=== PATIENT | male | born 1960 | race Caucasian/White ===

== ENCOUNTER 2018-10-10 10:03 | Emergency (ER) | payer MEDICARE ==
[~2018-10-10] VITALS: Ht 167.6 cm; Wt 70.0 kg
[~2018-10-10 10:03] MED LIST: AMOXICILLIN/CL875 MG PO; CARISOPRODOL350 M1 PO; CELEBREX200 MG OR; CIPRO500 MG PO; COLACE100 MG PO; DULCOLAX5 MG PO; FLEXERIL OR; FLONASE NASAL50 MCG; LORTAB 5 OR; MORPHINE SUL15 M2; MORPHINE SUL30 M3 PO; MORPHINE SUL30 M5 PO; MORPHINE SULFAT60 MG PO; NAPROSYN500 MG OR; OMEPRAZOLE20 MG PO; OXYCO/APAP1 TA1 OR; PERCOCET 5/325M1 TAB OR; PERCOCET1 TA2 OR; PRILOSEC20 MG PO; TOPAMAX25 MG; TOPIRAMATE50 MG PO; ULTRAM50 MG OR; VOLTAREN 1% TOP; VOLTAREN 1% UR; VOLTAREN1 % EX
[2018-10-10 10:09] VITALS: BP 149/85
[2018-10-10 10:29] LABS: HEMOGLOBIN 15.7 g/dl (14.0-18.0); IMMATURE GRANULOCYTES 0.4 % (0.0-5.0); MEAN CELL VOLUME 90.1 fL CALC (80.0-100.0); MEAN CORPUSCULAR HGB 29.5 pG CALC (26.0-32.0); MEAN CORPUSCULAR HGB CONC 32.7 g/L CALC (32.0-36.0); NEUT# 6.3 thou/uL (1.82-7.42); RED BLOOD COUNT 5.33 mill/uL (4.70-6.10)
[2018-10-10 10:40] LABS: ANION GAP 16 (6-22 (CALC)); BUN 14 mg/dL (9-20); BUN/CREATININE RATIO 15 (12-20 (CALC)); CARBON DIOXIDE 22 mmol/l (22-30); CHLORIDE 109 mmol/l (95-108); CREATININE 0.9 mg/dL (0.7-1.3); GFR > 60 ML/MIN (>=60 (CALC)); GFR FOR AFR.AMER. > 60 ML/MIN (>=60 (CALC)); POTASSIUM 4.1 mmol/l (3.5-5.1); SODIUM 142 mmol/l (137-146)
== END 2018-10-10 11:33 | disposition left against medical advice (07) ==
LOC: ED 10:03 → ED-I 11:07 → ED 11:33
PROVIDERS: Family Medicine
DX: R07.9 Chest pain, unspecified (principal); Z91.19 Patient's noncompliance with other medical treatment and regimen

== ENCOUNTER 2018-10-17 11:22 | Emergency (ER) | payer MEDICARE ==
[~2018-10-17] VITALS: Ht 167.6 cm; Wt 75.0 kg
[2018-10-17] MEDS ORDERED: XANAX0.25 MG PO (13:06)
[2018-10-17 13:44] VITALS: BP 139/77
== END 2018-10-17 13:44 | disposition home or self-care (01) ==
LOC: ED 11:22
DX: M79.602 Pain in left arm (principal); F41.1 Generalized anxiety disorder

== ENCOUNTER 2018-10-31 13:19 | Emergency (ER) | payer MEDICARE ==
[~2018-10-31] VITALS: Ht 167.6 cm; Wt 77.3 kg
[~2018-10-31 13:19] MED LIST changes: +XANAX0.25 MG PO
[2018-10-31] MEDS ORDERED: TOPAMAX50 MG PO (13:38)
[2018-10-31] MEDS ORDERED: GABAPENTIN300 M2 PO (13:38)
[2018-10-31] MEDS ORDERED: ESOMEPRAZOLE MA40 MG PO (13:38)
[2018-10-31] MEDS ORDERED: MORPHINE SUL15 M2 PO (13:39)
[2018-10-31 14:03] VITALS: BP 115/87
== END 2018-10-31 14:03 | disposition home or self-care (01) ==
LOC: ED 13:19
DX: S46.912A Strain of unspecified muscle, fascia and tendon at shoulder and upper arm level, left arm, initial encounter (principal); V58.4XXA Person boarding or alighting a pick-up truck or van injured in noncollision transport accident, initial encounter; Z87.820 Personal history of traumatic brain injury

== ENCOUNTER 2019-01-24 13:47 | Emergency (ER) | payer MEDICARE ==
[~2019-01-24] VITALS: Ht 167.6 cm; Wt 65.0 kg
[~2019-01-24 13:47] MED LIST changes: +ESOMEPRAZOLE MA40 MG PO; +GABAPENTIN300 M2 PO; +MORPHINE SUL15 M2 PO; +TOPAMAX50 MG PO
[2019-01-24] MEDS ORDERED: BACTROBAN TOP (14:49)
[2019-01-24] MEDS ORDERED: KEFLEX500 M1 PO (14:49)
[2019-01-24] MEDS ORDERED: BACTRIM DS1 TAB PO (14:49)
[2019-01-24 15:04] VITALS: BP 134/88
== END 2019-01-24 15:15 | disposition home or self-care (01) ==
LOC: ED 13:47
DX: L01.00 Impetigo, unspecified (principal); L03.116 Cellulitis of left lower limb; L03.114 Cellulitis of left upper limb; L03.113 Cellulitis of right upper limb

== ENCOUNTER 2019-04-23 14:50 | Emergency (ER) | payer MEDICARE ==
[~2019-04-23] VITALS: Ht 167.6 cm; Wt 70.0 kg
[~2019-04-23 14:50] MED LIST changes: +BACTRIM DS1 TAB PO; +BACTROBAN TOP; +KEFLEX500 M1 PO
[2019-04-23 15:40] LABS: IMMATURE GRANULOCYTES 0.3 % (0.0-5.0); MEAN CELL VOLUME 88.8 fL CALC (80.0-100.0); MEAN CORPUSCULAR HGB 29.3 pG CALC (26.0-32.0); NEUT# 10.7 thou/uL (1.82-7.42); RED BLOOD COUNT 4.54 mill/uL (4.70-6.10); RED CELL DISTRI WIDTH 13.6 % (11.5-15.5)
[2019-04-23 15:41] LABS: URINE BILIRUBIN - DIPSTICK NEGATIVE (NEGATIVE); URINE BLOOD DIPSTICK NEGATIVE (NEGATIVE); URINE COLOR YELLOW; URINE GLUCOSE - DIPSTICK NEGATIVE (NEGATIVE); URINE KETONE NEGATIVE (NEGATIVE); URINE LEUK ESTERASE NEGATIVE (NEGATIVE); URINE NITRITE - DIPSTICK NEGATIVE (Negative); URINE PROTEIN - DIPSTICK NEGATIVE (NEG-TRACE); URINE UROBILINOGEN - DIPSTICK 0.2 E.U./dL (0.2)
[2019-04-23 15:43] LABS: HEMATOCRIT 40.3 % (39.0-50.0); HEMOGLOBIN 13.3 g/dl (14.0-18.0)
[2019-04-23] MEDS ORDERED: MORPHINE SUL30 M3 PO (15:51)
[2019-04-23 16:01] LABS: ALBUMIN 4.3 g/dL (3.2-5.0); ALKALINE PHOSPHATASE 94 u/l (38-126); ANION GAP 13 (6-22 (CALC)); BUN 9 mg/dL (9-20); BUN/CREATININE RATIO 11 (12-20 (CALC)); CARBON DIOXIDE 23 mmol/l (22-30); CHLORIDE 107 mmol/l (95-108); CREATININE 0.9 mg/dL (0.7-1.3); GFR > 60 ML/MIN (>=60 (CALC)); GFR FOR AFR.AMER. > 60 ML/MIN (>=60 (CALC)); POTASSIUM 3.9 mmol/l (3.5-5.1); SODIUM 139 mmol/l (137-146); TOTAL PROTEIN 7.3 g/dL (6.3-8.2)
[2019-04-23 16:05] LABS: BILIRUBIN, TOTAL 0.6 mg/dL (0.0-1.4); SGOT/AST 41 u/l (17-59)
[2019-04-23 19:00] VITALS: BP 101/56
--- NOTE | 2019-04-25 08:53 | NUR ---
PRELIMINARY CULTURES CALLED TO GILDA ON FLOOR 7 W AT [facility]. 2 BOTTLES GROWING GRAM(+) COCCI. FAXED RESULTS TO [id number]. FINAL RESULTS TO FOLLOW.
== END 2019-04-23 19:00 | disposition short-term general hospital (02) ==
LOC: ED 14:50
PROVIDERS: Family Medicine
PROC: 00JU3ZZ Inspection of Spinal Canal, Percutaneous Approach (ICD-10-PCS; principal; 2019-04-23)
DX: A41.9 Sepsis, unspecified organism (principal); R41.82 Altered mental status, unspecified; Z87.820 Personal history of traumatic brain injury
CPT/HCPCS: J0133; J0692

== ENCOUNTER 2019-09-06 | Emergency (ER) | payer MEDICARE ==
[2019-09-06 14:02] LABS: HEMATOCRIT 40.3 % (39.0-50.0); IMMATURE GRANULOCYTES 0.3 % (0.0-5.0); MEAN CORPUSCULAR HGB 29.3 pG CALC (26.0-32.0); MEAN CORPUSCULAR HGB CONC 32.3 g/L CALC (32.0-36.0); NEUT# 10.24 thou/uL (1.82-7.42); RED BLOOD COUNT 4.43 mill/uL (4.70-6.10); RED CELL DISTRI WIDTH 13.4 % (11.5-15.5)
[2019-09-06 14:29] LABS: ALBUMIN 3.8 g/dL (3.2-5.0); ALKALINE PHOSPHATASE 88 u/l (38-126); ANION GAP 11 (6-22 (CALC)); BILIRUBIN, TOTAL 0.4 mg/dL (0.0-1.4); BUN 8 mg/dL (8-23); BUN/CREATININE RATIO 9 (12-20 (CALC)); CARBON DIOXIDE 22 mmol/l (22-30); CHLORIDE 110 mmol/l (95-108); CREATININE 0.9 mg/dL (0.7-1.3); GFR > 60 ML/MIN (>=60 (CALC)); GFR FOR AFR.AMER. > 60 ML/MIN (>=60 (CALC)); LIPASE 37 u/l (23-300); SGOT/AST 20 u/l (19-48); SODIUM 139 mmol/l (137-146); TOTAL PROTEIN 6.8 g/dL (6.3-8.2)
[2019-09-06 15:06] LABS: URINE BILIRUBIN - DIPSTICK NEGATIVE (NEGATIVE); URINE BLOOD DIPSTICK NEGATIVE (NEGATIVE); URINE COLOR YELLOW; URINE GLUCOSE - DIPSTICK NEGATIVE (NEGATIVE); URINE KETONE NEGATIVE (NEGATIVE); URINE LEUK ESTERASE NEGATIVE (NEGATIVE); URINE NITRITE - DIPSTICK NEGATIVE (Negative); URINE PH 6.5 (4.5-8.0); URINE PROTEIN - DIPSTICK NEGATIVE (NEG-TRACE); URINE SPECIFIC GRAVITY <=1.005; URINE UROBILINOGEN - DIPSTICK 0.2 E.U./dL (0.2)
== END 2019-09-06 16:26 | disposition left against medical advice (07) ==
PROVIDERS: Family Medicine
DX: R07.9 Chest pain, unspecified (principal); Z91.19 Patient's noncompliance with other medical treatment and regimen

== ENCOUNTER 2019-10-02 | Emergency (ER) | payer MEDICARE ==
[2019-10-02 18:09] LABS: HEMATOCRIT 42.3 % (39.0-50.0); HEMOGLOBIN 14.2 g/dl (14.0-18.0); IMMATURE GRANULOCYTES 0.3 % (0.0-5.0); MEAN CELL VOLUME 87.8 fL CALC (80.0-100.0); MEAN CORPUSCULAR HGB 29.5 pG CALC (26.0-32.0); MEAN CORPUSCULAR HGB CONC 33.6 g/dL CAL (32.0-36.0); NEUT# 17.07 thou/uL (1.82-7.42); RED BLOOD COUNT 4.82 mill/uL (4.70-6.10); RED CELL DISTRI WIDTH 13.4 % (11.5-15.5)
[2019-10-02 18:24] LABS: ALBUMIN 3.9 g/dL (3.2-5.0); ALKALINE PHOSPHATASE 103 u/l (38-126); ANION GAP 11 (6-22 (CALC)); BUN 14 mg/dL (8-23); BUN/CREATININE RATIO 16 (12-20 (CALC)); C-REACTIVE PROTEIN 8.1 mg/dL (0-0.9); CARBON DIOXIDE 20 mmol/l (22-30); CHLORIDE 109 mmol/l (95-108); CREATININE 0.9 mg/dL (0.7-1.3); GFR > 60 ML/MIN (>=60 (CALC)); GFR FOR AFR.AMER. > 60 ML/MIN (>=60 (CALC)); POTASSIUM 3.9 mmol/l (3.5-5.1); SGOT/AST 18 u/l (19-48); SODIUM 136 mmol/l (137-146)
[2019-10-02 18:30] LABS: BILIRUBIN, TOTAL 0.7 mg/dL (0.0-1.4)
[2019-10-02] MEDS ORDERED: VENTOLIN HFA IN (19:45)
[2019-10-02] MEDS ORDERED: DOXYCYCL HYC100 MG PO (19:45)
--- NOTE | 2019-10-05 07:33 | NUR ---
Notified patient of Negative Covid results. Advised patient to call PCP for follow up and to return to ED for any emergent needs.
== END 2019-10-02 20:30 | disposition home or self-care (01) ==
PROVIDERS: Family Medicine
DX: J18.9 Pneumonia, unspecified organism (principal); Z20.828 Contact with and (suspected) exposure to other viral communicable diseases

== ENCOUNTER 2020-07-21 00:43 | Emergency (ER) | payer MEDICARE ==
[~2020-07-21] VITALS: Ht 167.6 cm; Wt 72.7 kg
[~2020-07-21 00:43] MED LIST changes: +DOXYCYCL HYC100 MG PO; +VENTOLIN HFA IN
[2020-07-21 01:48] LABS: URINE BILIRUBIN - DIPSTICK NEGATIVE (NEGATIVE); URINE BLOOD DIPSTICK TRACE-INTACT (NEGATIVE); URINE COLOR YELLOW; URINE GLUCOSE - DIPSTICK NEGATIVE (NEGATIVE); URINE KETONE NEGATIVE (NEGATIVE); URINE LEUK ESTERASE NEGATIVE (NEGATIVE); URINE NITRITE - DIPSTICK NEGATIVE (Negative); URINE PH 5.5 (4.5-8.0); URINE PROTEIN - DIPSTICK NEGATIVE (NEG-TRACE); URINE SPECIFIC GRAVITY 1.015; URINE UROBILINOGEN - DIPSTICK 0.2 E.U./dL (0.2)
[2020-07-21 01:48] LABS: HEMOGLOBIN 15.4 g/dl (14.0-18.0); IMMATURE GRANULOCYTES 0.3 % (0.0-5.0); MEAN CELL VOLUME 91.5 fL CALC (80.0-100.0); MEAN CORPUSCULAR HGB 29.2 pG CALC (26.0-32.0); MEAN CORPUSCULAR HGB CONC 31.9 g/dL CAL (32.0-36.0); NEUT# 5.1 thou/uL (1.82-7.42); RED BLOOD COUNT 5.28 mill/uL (4.70-6.10); RED CELL DISTRI WIDTH 13.1 % (11.5-15.5)
[2020-07-21 01:49] LABS: HEMATOCRIT 48.3 % (39.0-50.0)
[2020-07-21 02:21] LABS: ALBUMIN 3.9 g/dL (3.2-5.0); ALKALINE PHOSPHATASE 80 u/l (38-126); ANION GAP 16 (6-22 (CALC)); BILIRUBIN, TOTAL 0.4 mg/dL (0.0-1.4); BUN 15 mg/dL (8-23); BUN/CREATININE RATIO 14 (12-20 (CALC)); CARBON DIOXIDE 22 mmol/l (22-30); CHLORIDE 108 mmol/l (95-108); CREATININE 1.1 mg/dL (0.7-1.3); GFR > 60 ML/MIN (>=60 (CALC)); GFR FOR AFR.AMER. > 60 ML/MIN (>=60 (CALC)); POTASSIUM 4.1 mmol/l (3.5-5.1); SGOT/AST 17 u/l (19-48); SODIUM 142 mmol/l (137-146)
[2020-07-21] MEDS ORDERED: Levaquin PO (03:46)
[2020-07-21 07:15] VITALS: BP 123/65
== END 2020-07-21 07:25 | disposition left against medical advice (07) ==
LOC: ED 00:43
PROVIDERS: Family Medicine
DX: J18.9 Pneumonia, unspecified organism (principal); Z87.820 Personal history of traumatic brain injury; Z91.19 Patient's noncompliance with other medical treatment and regimen; Z20.822 Contact with and (suspected) exposure to COVID-19

== ENCOUNTER 2023-07-30 19:34 | Emergency (ER) | payer MEDICARE ==
[~2023-07-30] VITALS: Ht 167.6 cm; Wt 72.0 kg
[~2023-07-30 19:34] MED LIST changes: +Levaquin PO
[2023-07-30 19:48] VITALS: BP 155/91
[2023-07-30 20:00] VITALS: BP 160/99
[2023-07-30 20:16] LABS: BASO% 0.8 % (0-3); IMMATURE GRANULOCYTES 0.2 % (0.0-5.0); LYMPH% 15.1 % (15-41); MEAN CORPUSCULAR HGB 23.8 pG CALC (26.0-32.0); MEAN CORPUSCULAR HGB CONC 30.6 g/dL CAL (32.0-36.0); MONO% 9.6 % (2-13); NEUT# 4.36 thou/uL (1.82-7.42); NEUT% 72.3 % (42-76); RED BLOOD COUNT 4.5 mill/uL (4.70-6.10); RED CELL DISTRI WIDTH 15.2 % (11.5-15.5)
[2023-07-30 20:21] LABS: HEMOGLOBIN 10.7 g/dl (14.0-18.0); MEAN CELL VOLUME 77.8 fL CALC (80.0-100.0)
[2023-07-30 20:31] LABS: ALBUMIN 3.9 g/dL (3.2-5.0); ALKALINE PHOSPHATASE 85 u/l (38-126); BILIRUBIN, TOTAL 0.3 mg/dL (0.2-1.3); BUN 13 mg/dL (8-23); BUN/CREATININE RATIO 16 (12-20 (CALC)); CHLORIDE 108 mmol/l (95-108); CPK 65 u/l (55-170); CREATININE 0.8 mg/dL (0.7-1.3); ETHYL ALCOHOL 0 mg/dl (0-30); GFR FOR AFR.AMER. > 60 ML/MIN (>=60 (CALC)); GFR OTHER RACES > 60 ML/MIN (>=60 (CALC)); LIPASE 77 u/l (23-300); MAGNESIUM 2.4 mg/dL (1.6-2.3); POTASSIUM 4.3 mmol/l (3.5-5.1); SGOT/AST 20 u/l (19-48); SODIUM 140 mmol/l (137-146); TOTAL PROTEIN 6.9 g/dL (6.3-8.2)
[2023-07-30 20:45] LABS: ANION GAP 9 (6-22 (CALC)); CARBON DIOXIDE 27 mmol/l (22-30); INTERNATIONAL NORMALIZED RATIO 1.1 RATIO (0.7-1.3); PROTHROMBIN TIME 10.4 SECONDS (9.0-12.5)
[2023-07-31 00:11] LABS: URINE BLOOD DIPSTICK Negative (NEGATIVE); URINE GLUCOSE - DIPSTICK Negative (NEGATIVE); URINE KETONE Negative (NEGATIVE); URINE LEUK ESTERASE Negative (NEGATIVE); URINE NITRITE - DIPSTICK Negative (Negative); URINE PROTEIN - DIPSTICK Trace mg/dL (NEG-TRACE); URINE SPECIFIC GRAVITY >=1.030; URINE UROBILINOGEN - DIPSTICK 0.2 E.U./dL (0.2)
[2023-07-31 00:14] LABS: URINE COLOR Yellow
[2023-07-31 00:33] VITALS: BP 154/89
[2023-07-31 00:56] VITALS: BP 154/89
== END 2023-07-31 00:56 | disposition left against medical advice (07) ==
LOC: ED 19:34
PROVIDERS: Internal Medicine
DX: R55 Syncope and collapse (principal); R79.9 Abnormal finding of blood chemistry, unspecified; M54.50 Low back pain, unspecified; Z87.820 Personal history of traumatic brain injury; Z53.29 Procedure and treatment not carried out because of patient's decision for other reasons

== ENCOUNTER 2023-08-29 14:06 | Emergency (ER) | payer MEDICARE | END 2023-08-29 15:00 | disposition left against medical advice (07) | LOC: ED 14:06 → LWOBS 15:00 | DX: Z53.21 Procedure and treatment not carried out due to patient leaving prior to being seen by health care provider (principal) ==

== ENCOUNTER 2023-12-27 12:50 | Emergency (ER) | payer MEDICARE ==
[~2023-12-27] VITALS: Ht 167.6 cm; Wt 63.6 kg
[~2023-12-27 12:50] MED LIST changes: +METHOCARBAMOL500 MG PO; +MIRALAX17 GM PO; +MOTRIN800 MG PO; +NAPROXEN500 MG PO; +ONDANSETRON4 MG PO; +PREDNISONE20 MG PO; +TOPAMAX50 M1 PO
[2023-12-27 13:10] VITALS: BP 132/105
[2023-12-27 13:15] VITALS: BP 132/89
[2023-12-27] MEDS ORDERED: KETOROLAC TROMETHAMINE 30 MG/ML SDV IM ONE (13:15)
[2023-12-27 13:30] VITALS: BP 136/98
[2023-12-27 13:45] VITALS: BP 150/103
[2023-12-27 13:53] VITALS: BP 150/103
[2023-12-27] MEDS ORDERED: TORADOL PO (19:58)
[2023-12-29] MEDS ORDERED: PREDNISONE10 MG PO (19:51)
== END 2023-12-27 14:03 | disposition home or self-care (01) ==
LOC: ED 12:50
DX: M54.9 Dorsalgia, unspecified (principal); G89.29 Other chronic pain; Z87.820 Personal history of traumatic brain injury; R07.9 Chest pain, unspecified; R07.89 Other chest pain

== ENCOUNTER 2023-12-27 18:41 | Emergency (ER) | payer MEDICARE ==
[2023-12-27] VITALS (8 sets, daily range): BP systolic 126–150; BP diastolic 59–91
[~2023-12-27] VITALS: Ht 167.6 cm; Wt 68.0 kg
[2023-12-27] MEDS ORDERED: ASPIRIN 81 MG/TAB PO ONE (18:50)
[2023-12-27] MEDS ORDERED: KETOROLAC TROMETHAMINE 30 MG/ML SDV IV ONE (18:50)
[2023-12-27] MEDS ORDERED: traMADol HCL 50 MG/TAB PO ONE (18:50)
[2023-12-27] MEDS ORDERED: ACETAMINOPHEN 500 MG TAB PO ONE (18:55)
[2023-12-27 19:22] LABS: BASO% 0.5 % (0-3); EOS% 0.9 % (0-8); HEMATOCRIT 36.6 % (39.0-50.0); HEMOGLOBIN 10.9 g/dl (14.0-18.0); LYMPH% 16.9 % (15-41); MEAN CELL VOLUME 73.3 fL CALC (80.0-100.0); MEAN CORPUSCULAR HGB 21.8 pG CALC (26.0-32.0); MEAN CORPUSCULAR HGB CONC 29.8 g/dL CAL (32.0-36.0); NEUT# 5.66 thou/uL (1.82-7.42); NEUT% 72.7 % (42-76); RED BLOOD COUNT 4.99 mill/uL (4.70-6.10); RED CELL DISTRI WIDTH 19.1 % (11.5-15.5)
[2023-12-27 19:38] LABS: ALBUMIN 4.1 g/dL (3.2-5.0); ALKALINE PHOSPHATASE 81 u/l (38-126); ANION GAP 9 (6-22 (CALC)); BUN 16 mg/dL (8-23); BUN/CREATININE RATIO 16 (12-20 (CALC)); CARBON DIOXIDE 24 mmol/l (22-30); CHLORIDE 110 mmol/l (95-108); ESTIMATED GFR 84 ML/MIN (>=90 (CALC)); POTASSIUM 3.9 mmol/l (3.5-5.1); SGOT/AST 24 u/l (19-48); SODIUM 139 mmol/l (137-146); TOTAL PROTEIN 7.5 g/dL (6.3-8.2)
[2023-12-27 19:49] LABS: BILIRUBIN, TOTAL 0.5 mg/dL (0.2-1.3)
[2023-12-27] MEDS ORDERED: TORADOL PO (19:58)
[2023-12-29] MEDS ORDERED: PREDNISONE10 MG PO (19:51)
== END 2023-12-27 21:00 | disposition home or self-care (01) ==
LOC: ED 18:41
PROVIDERS: Family Medicine
DX: R07.89 Other chest pain (principal); M54.9 Dorsalgia, unspecified; G89.29 Other chronic pain; Z87.820 Personal history of traumatic brain injury

== ENCOUNTER 2024-01-01 13:04 | Emergency (ER) | payer MEDICARE ==
[~2024-01-01] VITALS: Ht 167.6 cm; Wt 72.5 kg
[~2024-01-01 13:04] MED LIST changes: +PREDNISONE10 MG PO; +TORADOL PO
[2024-01-01 13:41] LABS: BASO% 0.4 % (0-3); HEMATOCRIT 36.2 % (39.0-50.0); HEMOGLOBIN 10.9 g/dl (14.0-18.0); IMMATURE GRANULOCYTES 0.2 % (0.0-5.0); LYMPH% 17.2 % (15-41); MEAN CELL VOLUME 72.8 fL CALC (80.0-100.0); MEAN CORPUSCULAR HGB 21.9 pG CALC (26.0-32.0); MEAN CORPUSCULAR HGB CONC 30.1 g/dL CAL (32.0-36.0); MONO% 7.8 % (2-13); NEUT# 3.85 thou/uL (1.82-7.42); NEUT% 73.4 % (42-76); RED BLOOD COUNT 4.97 mill/uL (4.70-6.10); RED CELL DISTRI WIDTH 19.1 % (11.5-15.5)
[2024-01-01 13:57] LABS: ALBUMIN 3.9 g/dL (3.2-5.0); ALKALINE PHOSPHATASE 75 u/l (38-126); ANION GAP 8 (6-22 (CALC)); BILIRUBIN, TOTAL 0.4 mg/dL (0.2-1.3); BUN 15 mg/dL (8-23); BUN/CREATININE RATIO 17 (12-20 (CALC)); CARBON DIOXIDE 25 mmol/l (22-30); CHLORIDE 110 mmol/l (95-108); CREATININE 0.9 mg/dL (0.7-1.3); ESTIMATED GFR 95 ML/MIN (>=90 (CALC)); SGOT/AST 23 u/l (19-48); SODIUM 138 mmol/l (137-146); TOTAL PROTEIN 7.1 g/dL (6.3-8.2)
[2024-01-01] MEDS ORDERED: SODIUM CHLORIDE 0.9% 1,000 ML IV ONE (15:10)
[2024-01-01 15:42] LABS: URINE BILIRUBIN - DIPSTICK Negative (NEGATIVE); URINE BLOOD DIPSTICK Trace-intact (NEGATIVE); URINE COLOR Yellow; URINE GLUCOSE - DIPSTICK Negative (NEGATIVE); URINE KETONE Trace mg/dL (NEGATIVE); URINE LEUK ESTERASE Negative (NEGATIVE); URINE NITRITE - DIPSTICK Negative (Negative); URINE PH 5.5 (4.5-8.0); URINE PROTEIN - DIPSTICK Negative (NEG-TRACE); URINE SPECIFIC GRAVITY 1.025
[2024-01-01] MEDS ORDERED: FUROSEMIDE 40 MG/4 ML SDV IV ONE (16:05)
[2024-01-01] MEDS ORDERED: LASIX20 MG PO (16:10)
[2024-01-01] MEDS ORDERED: ESOMEPRAZOLE MA40 MG PO (16:15)
[2024-01-01 16:20] VITALS: BP 125/81
== END 2024-01-01 17:10 | disposition home or self-care (01) ==
LOC: ED 13:04
PROVIDERS: Nurse Practitioner
DX: R07.89 Other chest pain (principal); Z87.820 Personal history of traumatic brain injury

== ENCOUNTER 2024-02-18 16:34 | Emergency (ER) | payer MEDICARE ==
[~2024-02-18] VITALS: Ht 167.6 cm; Wt 74.8 kg
[~2024-02-18 16:34] MED LIST changes: +LASIX20 MG PO
[2024-02-18 16:39] VITALS: BP 143/91
[2024-02-18 16:45] VITALS: BP 144/112
[2024-02-18] MEDS ORDERED: MORPHINE SULFATE 4 MG/ML VIAL IV ONE (17:00)
[2024-02-18] MEDS ORDERED: KETOROLAC TROMETHAMINE 30 MG/ML SDV IM ONE (17:00)
[2024-02-18 17:48] VITALS: BP 144/112
== END 2024-02-18 17:55 | disposition home or self-care (01) ==
LOC: ED 16:34
DX: G89.21 Chronic pain due to trauma (principal); M54.50 Low back pain, unspecified; Z87.820 Personal history of traumatic brain injury; R26.89 Other abnormalities of gait and mobility

== ENCOUNTER 2024-03-06 17:17 | Emergency (ER) | payer MEDICARE ==
[~2024-03-06] VITALS: Ht 167.6 cm; Wt 75.0 kg
[2024-03-06] VITALS (16 sets, daily range): BP systolic 136–176; BP diastolic 84–151
[2024-03-06] MEDS ORDERED: MORPHINE SULFATE 4 MG/ML VIAL IV ONE (17:45)
[2024-03-06] MEDS ORDERED: ONDANSETRON HCl 4 MG/2 ML SDV IV ONE (17:45)
[2024-03-06 18:05] LABS: BASO% 0.6 % (0-3); EOS% 0.9 % (0-8); HEMATOCRIT 36.1 % (39.0-50.0); HEMOGLOBIN 11.2 g/dl (14.0-18.0); LYMPH% 12.9 % (15-41); MEAN CELL VOLUME 74.3 fL CALC (80.0-100.0); MONO% 8.2 % (2-13); NEUT# 6.52 thou/uL (1.82-7.42); NEUT% 77.4 % (42-76); RED BLOOD COUNT 4.86 mill/uL (4.70-6.10); RED CELL DISTRI WIDTH 17.2 % (11.5-15.5)
[2024-03-06 18:11] LABS: ALBUMIN 4.3 g/dL (3.2-5.0); ALKALINE PHOSPHATASE 87 u/l (38-126); ANION GAP 9 (6-22 (CALC)); BILIRUBIN, TOTAL 0.4 mg/dL (0.2-1.3); BUN 17 mg/dL (8-23); BUN/CREATININE RATIO 18 (12-20 (CALC)); CARBON DIOXIDE 24 mmol/l (22-30); CHLORIDE 111 mmol/l (95-108); ESTIMATED GFR 84 ML/MIN (>=90 (CALC)); POTASSIUM 4.1 mmol/l (3.5-5.1); SGOT/AST 23 u/l (19-48); SODIUM 140 mmol/l (137-146); TOTAL PROTEIN 7.4 g/dL (6.3-8.2)
[2024-03-06] MEDS ORDERED: Acetaminophen 300 MG/Codeine 30 MG/COMBO PO ONE (21:00)
[2024-03-06] MEDS ORDERED: KETOROLAC TROMETHAMINE 30 MG/ML SDV IV ONE (21:00)
[2024-03-06] MEDS ORDERED: TYLENOL # 31 TA1 PO (21:10)
== END 2024-03-06 21:20 | disposition home or self-care (01) ==
LOC: ED 17:17
PROVIDERS: Family Medicine
DX: M51.36 Other intervertebral disc degeneration, lumbar region (principal); R51.9 Headache, unspecified; Z87.820 Personal history of traumatic brain injury; Z91.81 History of falling

== ENCOUNTER 2024-03-09 10:45 | Emergency (ER) | payer MEDICARE ==
[~2024-03-09] VITALS: Ht 167.6 cm; Wt 74.8 kg
[2024-03-09] VITALS (16 sets, daily range): BP systolic 109–139; BP diastolic 71–113
[~2024-03-09 10:45] MED LIST changes: +TYLENOL # 31 TA1 PO
[2024-03-09] MEDS ORDERED: KETOROLAC TROMETHAMINE 30 MG/ML SDV IM ONE (13:30)
== END 2024-03-09 15:17 | disposition home or self-care (01) ==
LOC: ED 10:45
DX: M54.50 Low back pain, unspecified (principal); G89.29 Other chronic pain; Z87.820 Personal history of traumatic brain injury; Z91.81 History of falling

== ENCOUNTER 2024-03-11 09:51 | Emergency (ER) | payer MEDICARE ==
[~2024-03-11] VITALS: Ht 167.6 cm; Wt 72.5 kg
[2024-03-11] VITALS (7 sets, daily range): BP systolic 129–190; BP diastolic 85–101
[2024-03-11] MEDS ORDERED: ACETAMINOPHEN 500 MG TAB PO ONE (10:00)
[2024-03-11] MEDS ORDERED: KETOROLAC TROMETHAMINE 30 MG/ML SDV IM ONE (10:00)
[2024-03-11] MEDS ORDERED: ESOMEPRAZOLE MA40 MG (10:34)
[2024-03-11 10:35] LABS: BASO% 0.6 % (0-3); EOS% 1.1 % (0-8); HEMATOCRIT 34.7 % (39.0-50.0); HEMOGLOBIN 10.8 g/dl (14.0-18.0); IMMATURE GRANULOCYTES 0.2 % (0.0-5.0); LYMPH% 12.1 % (15-41); MEAN CELL VOLUME 75.4 fL CALC (80.0-100.0); MEAN CORPUSCULAR HGB 23.5 pG CALC (26.0-32.0); MEAN CORPUSCULAR HGB CONC 31.1 g/dL CAL (32.0-36.0); MONO% 8.8 % (2-13); NEUT# 4.21 thou/uL (1.82-7.42); NEUT% 77.2 % (42-76); RED BLOOD COUNT 4.6 mill/uL (4.70-6.10); RED CELL DISTRI WIDTH 17.2 % (11.5-15.5)
[2024-03-11 10:44] LABS: BILIRUBIN, TOTAL 0.5 mg/dL (0.2-1.3)
== END 2024-03-11 13:32 | disposition home or self-care (01) ==
LOC: ED 09:51
PROVIDERS: Family Medicine
DX: M54.50 Low back pain, unspecified (principal); G89.29 Other chronic pain; Z87.820 Personal history of traumatic brain injury; Z91.81 History of falling; R51.9 Headache, unspecified

== ENCOUNTER 2024-03-15 19:27 | Observation (INO) | payer MEDICARE ==
[~2024-03-15] VITALS: Ht 167.6 cm; Wt 70.0 kg
[2024-03-15] VITALS (9 sets, daily range): BP systolic 130–168; BP diastolic 68–98
[~2024-03-15 19:27] MED LIST changes: +ESOMEPRAZOLE MA40 MG
--- NOTE | 2024-03-15 19:27 | NUR ---
PT TO ER BED 15 FOR TRIAGE AT THIS TIME VIA EMS STRETCHER. PT AMBULATED TO BED FROM DOOR WITH AN EVEN AND STEADY GAIT IN NO APPARENT DISTRESS. CALL LIGHT WITHIN REACH AND PT AWAITING EDP EXAM.
[2024-03-15] MEDS ORDERED: SODIUM CHLORIDE 0.9% 1,000 ML IV ONE (19:40)
[2024-03-15 20:11] LABS: BASO% 0.9 % (0-3); EOS% 2.8 % (0-8); HEMATOCRIT 33.2 % (39.0-50.0); HEMOGLOBIN 10.3 g/dl (14.0-18.0); IMMATURE GRANULOCYTES 0.2 % (0.0-5.0); LYMPH% 24.4 % (15-41); MEAN CORPUSCULAR HGB 23.6 pG CALC (26.0-32.0); MONO% 9.4 % (2-13); NEUT# 2.91 thou/uL (1.82-7.42); NEUT% 62.3 % (42-76); RED BLOOD COUNT 4.37 mill/uL (4.70-6.10); RED CELL DISTRI WIDTH 17.1 % (11.5-15.5)
[2024-03-15 20:29] LABS: ALBUMIN 3.6 g/dL (3.2-5.0); BILIRUBIN, TOTAL 0.6 mg/dL (0.2-1.3); CREATININE 0.8 mg/dL (0.7-1.3); MAGNESIUM 2.3 mg/dL (1.6-2.3); TOTAL PROTEIN 6.3 g/dL (6.3-8.2)
--- NOTE | 2024-03-15 20:34 | NUR ---
PT SITTING IN RM AWAITING RESULTS AT THIS TIME. CALL LIGHT WITHIN REACH AND PT HAS NO NEEDS OR CONCERNS AT THIS TIME.
[2024-03-15] MEDS ORDERED: LACTATED RINGER'S 1,000 ML IV PRN (21:25)
--- NOTE | 2024-03-15 21:28 | NUR ---
PT SITTING IN RM AWAITING RESULTS AT THIS TIME. CALL LIGHT WITHIN REACH AND PT HAS NO NEEDS OR CONCERNS AT THIS TIME.
[2024-03-15 21:53] LABS: URINE BILIRUBIN - DIPSTICK Negative (NEGATIVE); URINE BLOOD DIPSTICK Trace-intact (NEGATIVE); URINE GLUCOSE - DIPSTICK Negative (NEGATIVE); URINE KETONE Negative (NEGATIVE); URINE LEUK ESTERASE Negative (NEGATIVE); URINE NITRITE - DIPSTICK Negative (Negative); URINE PROTEIN - DIPSTICK Trace mg/dL (NEG-TRACE); URINE SPECIFIC GRAVITY >=1.030
[2024-03-15 21:59] LABS: URINE COLOR Yellow
[2024-03-15] MEDS ORDERED: ONDANSETRON 4 MG/TAB ODT PO PRN (22:10)
[2024-03-15] MEDS ORDERED: ENOXAPARIN SODIUM 40 MG/0.4 ML SYR SC ONE (22:10)
[2024-03-15] MEDS ORDERED: ACETAMINOPHEN 500 MG TAB PO ONE (22:10)
[2024-03-15] MEDS ORDERED: ONDANSETRON HCl 4 MG/2 ML SDV IV PRN (22:10)
[2024-03-15] MEDS ORDERED: IBUPROFEN 800 MG/TAB PO PRN (22:10)
[2024-03-15] MEDS ORDERED: Polyethylene Glycol 3350 17 GM/PKT PO PRN (22:10)
[2024-03-15] MEDS ORDERED: traMADol HCL 50 MG/TAB PO ONE (22:10)
[2024-03-15] MEDS ORDERED: ALUM & MAG HYDROX-SIMETHICONE 30 ML PO PRN (22:10)
[2024-03-15] MEDS ORDERED: FAMOTIDINE 10MG/ML 2ML SDV IV PRN (22:10)
--- NOTE | 2024-03-15 22:37 | NUR ---
PT SITTING IN AWAITING ADMIT TO MED SURG. CALL LIGHT WITHIN REACH AND PT HAS NO NEEDS OR CONCERNS AT THIS TIME.
--- NOTE | 2024-03-15 23:35 | NUR ---
REPORT GIVEN TO EMMANUEL RN AND PT TO BE TRANSPORTED TO ICU BED 8 A MEDSURG OVERFLOW PT. CALL LIGHT WITHIN REACH AND PT HAS NO NEEDS OR CONCERNS.
[2024-03-16] VITALS (8 sets, daily range): BP systolic 134–167; BP diastolic 79–116
--- NOTE | 2024-03-16 | NUR ---
PT IN GOWN AND ASKED TO REMOVE PANTS BEFORE GOING UPSTAIRS BUT DECLINED AT THIS TIME. PT STATED THAT HE WILL JUST TAKE THEM OFF UPSTAIRS.
--- NOTE | 2024-03-16 00:12 | NUR ---
Admission Note Report Given to: RUDY BENITEZ Transported by: X Wheelchair Stretcher Transported with: X Nurse Transporter X Patent IV O2 End Maker Location: X ICU MS2
--- NOTE | 2024-03-16 00:15 | NUR ---
PATIENT ARRIVED TO ICU ROOM 8 FROM THE EMERGENCY DEPARTMENT. PATIENT ORIENTED TO THE CALL LIGHT SYSTEM/ROOM, EDUCATED PATIENT TO CALL FOR ASSISTANCE TO AMBULATE; PATIENT VERBALIZED UNDERSTANDING. BED ALARM ON. PATIENT STATES ALL NEEDS MET AT THIS TIME.
--- NOTE | 2024-03-16 00:45 | NUR ---
PATIENT DENIES ANY CHEST PAIN AT THIS TIME. PATIENT DOES REPORT A HEADACHE 5/10 WHICH HE REPORTS PAIN 5/10 IS HIS BASELINE AT HOME.
--- NOTE | 2024-03-16 04:08 | NUR ---
PATIENT RESTING IN BED. ASSESSMENT UNCHANGED.
--- NOTE | 2024-03-16 08:00 | NUR ---
REPORT RECEIVED FROM NIGHT NURSE. PATIENT AXO X3. S1S2 NOTED, NORMAL SINUS ON TELE. LUNGS CLEAR THROUGHOUT, NO COUGH OR SOB NOTED, ON ROOM AIR. PULSES STRONG IN ALL EXTREMITIES. ABDOMEN SOFT, NON-DISTENDED, NON-TENDER, WITH ACTIVE BOWEL SOUNDS. SKIN WDI. CALL LIGHT IN REACH. VSS.
[2024-03-16] MEDS ORDERED: ASPIRIN 81 MG/TAB PO SCH (09:00)
--- NOTE | 2024-03-16 09:05 | NUR ---
ATTEMPTED MED REC WITH PATIENT. HE WAS UNABLE TO RECALL MEDICATIONS FROM CLAIM HISTORY. PATIENT IS A POOR HISTORIAN. ORDER PLACED FOR PHARMACY CONSULT.
--- NOTE | 2024-03-16 11:29 | NUR ---
PYSICAL THERAPY AT BEDSIDE TO WORK WITH PATIENT.
--- NOTE | 2024-03-16 12:00 | NUR ---
PATIENT SITTING UP IN BED EATING. ALL NEEDS MET. CALL LIGHT IN REACH. VSS.
[2024-03-16] MEDS ORDERED: NAPROXEN500 MG PO (14:10)
[2024-03-16] MEDS ORDERED: LASIX20 MG PO (14:11)
--- NOTE | 2024-03-16 15:00 | NUR ---
PATIENT HELPED TO THE BEDSIDE COMMODE, TWO PERSON MAX ASSIST. BEDDING CHANGED.
[2024-03-16] MEDS ORDERED: ACETAMINOPHEN 325 MG/TAB PO PRN (16:10)
[2024-03-16] MEDS ORDERED: MAGNESIUM HYDROXIDE 30 ML UDC PO PRN (16:10)
--- NOTE | 2024-03-16 16:22 | NUR ---
PATIENT ATTEMPTED TO GET OUT OF BED HIMSELF TO USE URINAL. DUE TO HISTORY OF FALLS, PATIENT INSTRUCTED TO USE URINAL WHILE SITTING ON EDGE OF BED. PATIENT BECAME AGITATED WITH STAFF. PATIENT REPOSITIONED BACK IN BED AND EDUCATED ON SAFETY AND FALL PRECAUTIONS. PATIENT USING URINAL. BED ALARM ON. INSTRUCTED TO CALL FOR ASSISTENCE.
--- NOTE | 2024-03-16 20:00 | NUR ---
PATIENT RESTING IN BED WATCHING TELEVISION. PATIENT ATTEMPTED TO USE THE URINAL WHILE SITING IN BED BUT NEEDED TO SIT ON THE SIDE OF THE BED. PATIENT WAS UNSTEADY AND UNABLE TO SIT ON THE SIDE OF THE BED WITHOUT SWAYING, PATIENT REQUIRED ASSISTANCE TO SIT UPRIGHT. PATIENT INSISTED ON WALKING TO THE RESTROOM BUT WAS RE-EDUCATED ON FALL PREVENTION AND HIS HISTORY OF RECENT RECURRENT FALLS. PATIENT AGREEABLE TO USE URINAL ON SIDE OF BED. PATIENT VERABLIZED UNDERSTANDING TO CALL FOR ASSISTANCE USING CALL LIGHT AND DEMONSTRATED PROPER USE. BED ALARM ACTIVATED. PATIENT STATED HE FREQUENTLY USES THE RESTROOM WITH URGENCY. PATIENT AGREEABLE TO A MALE PUREWICK. SKIN INTACT AND PUREWICK FUNCTIONING WITHOUT INCIDENT.
[2024-03-16] MEDS ORDERED: ENOXAPARIN SODIUM 40 MG/0.4 ML SYR SC SCH (21:00)
[2024-03-17] VITALS (9 sets, daily range): BP systolic 133–177; BP diastolic 84–115
--- NOTE | 2024-03-17 | NUR ---
PATIENT INSISTED ON USING THE BEDSIDE COMMODE. PATIENT WAS ABLE TO STAND AND PIVOT TO BSC WITH MINIMAL ASSISTANCE X2 NURSES PRESENT ON EACH SIDE OF HIM. PATIENT IS UNSTEADY AND IMPULSIVE WHEN STANDING ALTHOUGH HE VERBALIZES UNDERSTANDING TO TAKE IT SLOW WHEN MOVING TO ENSURE HE IS STEADY. PATIENT WAS ON BSC FOR A MOMENT AND THEN SAID HE DID NOT NEED TO HAVE A BM HE JUST WANTED TO USE IT TO URINATE. PURE WICK HAD 800 CC CLEAR YELLOW URINE IN COLLECTION CONTAINER. HOWEVER, PATIENT REMOVED THE PURE WICK, USED THE URINAL IN BED AND SPILLED URINE ON HIMSELF AND BEDDING. LINENS CHANGED. PATIENT BATHED SELF AND WAS ASSISTED BACK TO BED. PURE WICK REPLACED, BED ALARM SET AND CALL LIGHT WITHIN REACH.
--- NOTE | 2024-03-17 00:53 | NUR ---
PATIENT ATTTEMPTED TO GET OUT OF BED AND BED ALARM SOUNDED. PATIENT FOUND TO BE SITTING ON SIDE OF BED AND STATED HE NEEDED TO URINATE AGAIN. REMINDED PATIENT PUREWICK WAS STILL IN PLACE AND HE STATED HE FORGOT. BED ALARM RE-ACTIVATED. PATIENT STATES ALL OTHER NEEDS MET AT THIS TIME.
[2024-03-17 05:51] LABS: HEMATOCRIT 36.1 % (39.0-50.0); HEMOGLOBIN 11.3 g/dl (14.0-18.0); MEAN CORPUSCULAR HGB 24.1 pG CALC (26.0-32.0); MEAN CORPUSCULAR HGB CONC 31.3 g/dL CAL (32.0-36.0); RED BLOOD COUNT 4.69 mill/uL (4.70-6.10); RED CELL DISTRI WIDTH 17.2 % (11.5-15.5)
[2024-03-17 06:01] LABS: ALBUMIN 3.5 g/dL (3.2-5.0); BILIRUBIN, TOTAL 0.5 mg/dL (0.2-1.3); CREATININE 0.8 mg/dL (0.7-1.3); MAGNESIUM 2.2 mg/dL (1.6-2.3); POTASSIUM 4.2 mmol/l (3.5-5.1); TOTAL PROTEIN 6.3 g/dL (6.3-8.2)
--- NOTE | 2024-03-17 07:52 | NUR ---
REPORT RECEVIED FROM NIGHT NURSE. PATIENT AXO X3. S1S2 NOTED, SINUS PATSY ON MONITOR. LUNGS CLEAR THROGHOUT. PULSES STRONG IN ALL EXTREMITIES. ABDOMEN SOFT, NON-DISTENDED, NON-TENDER, WITH ACTIVE BOWEL SOUNDS. SKIN WDI. CALL LIGHT IN REACH. VSS.
--- NOTE | 2024-03-17 08:00 | NUR ---
GOT PATIENT UP TO BEDSIDE COMMODE. TWO PERSON MAX ASSIST. BEDDING CHANGED.
--- NOTE | 2024-03-17 08:33 | NUR ---
PT AT BEDSIDE TO WORK WITH PATIENT.
--- NOTE | 2024-03-17 12:00 | NUR ---
PATIENT SITTING UP IN BED TALKING ON THE PHONE. ALL NEEDS MET. CALL LIGHT IN REACH. VSS.
--- NOTE | 2024-03-17 12:30 | NUR ---
PATIENT ATTEMPTING TO GET OUT OF BED HIMSELF. EDUCATED ON FALL PREVETNTION AND TO CALL BEFORE GETTING OUT OF BED. PATIENT VERBALIZES UNDERSTANDING.
--- NOTE | 2024-03-17 16:00 | NUR ---
PATIENT ATTEMPTING TO GET OUT OF BED ON HIS OWN. EDUCATED AGAIN TO CALL US IF HE NEEDS TO GET UP FOR ANY REASON. EMPHASIZED FALL PREVENTION STRATEGIES. PATIENT VERBALIZES UNDERSTANDING. BED ALARM SET.
--- NOTE | 2024-03-17 20:00 | NUR ---
PATIENT RESTING IN BED WATCHING TELEVISION. PATIENT DEMONSTRATED PROPER USE OF CALL LIGHT, ASKED FOR CELL PHONE TO BE PLACED ON HEADLINE WRITER. BED IN LOWEST POSITION AND BED ALARM IS ON.
--- NOTE | 2024-03-17 22:00 | NUR ---
PATIENT RESTING IN BED. ASSESSMENT UNCHANGED.
[2024-03-18] VITALS: BP 132/83
--- NOTE | 2024-03-18 04:00 | NUR ---
PATIENT RESTING IN BED, ASSESSMENT UNCHANGED. CALL LIGHT AND PERSONAL BELONGINGS WITHIN REACH. BED LOCKED IN LOWEST POSITION WITH BED ALARM ON.
[2024-03-18 04:01] VITALS: BP 139/94
--- NOTE | 2024-03-18 06:00 | NUR ---
PATIENT RESTING IN BED. ASSESSMENT UNCHANGED.
--- NOTE | 2024-03-18 07:38 | NUR ---
REPORT RECEIVED FROM NIGHT RN. PATIENT AXO X3. S1S2 NOTED, SINUS PATSY ON TELE. LUNGS CLEAR THROUGHOUT, NO COUGH OR SOB NOTED. PULSES STRONG IN ALL EXTREMITIES. ABDOMEN SOFT, NON-DISTENDED, NON-TENDER, WITH ACTIVE BOWEL SOUNDS. SKIN WDI. CALL LIGHT IN REACH. VSS.
[2024-03-18 08:00] VITALS: BP 136/69
--- NOTE | 2024-03-18 08:00 | NUR ---
PATIENT LAYING DOWN IN BED ASLEEP. ALL NEEDS MET. CALL LIGHT IN REACH. VSS.
[2024-03-18] MEDS ORDERED: AMLODIPINE BESYL5 MG PO (08:32)
[2024-03-18 08:52] VITALS: BP 141/88
[2024-03-18] MEDS ORDERED: FERROUS SULF325 M3 PO (08:55)
[2024-03-18] MEDS ORDERED: amLODIPine BESYLATE 5 MG/TAB PO SCH (09:00)
--- NOTE | 2024-03-18 10:55 | NUR ---
PATIENT CUSSING AT STAFF. WANTING TO LEAVE. PATIENT INFORMED THAT HE IS GOING TO REHAB LATER TODAY.
--- NOTE | 2024-03-18 12:00 | NUR ---
PATIENT HELPED TO THE BEDSIDE COMMODE. NOW SITTING UP IN BED EATING. ALL NEEDS MET. CALL LIGHT IN REACH. VSS.
[2024-03-18 12:01] VITALS: BP 161/109
[2024-03-18 12:18] VITALS: BP 154/98
--- NOTE | 2024-03-18 12:40 | NUR ---
DR. MAI AT BEDSIDE. INFORMED HIM PATIENT IS REFUSING REHAB AND WANTS TO GO HOME.
--- NOTE | 2024-03-18 12:50 | NUR ---
DR. MAI APPROVED FOR PATIENT TO GO HOME SINCE HE IS REFUSING REHAB. PATIENT IS AXO X4. PATIENT DOES NOT HAVE A RIDE. [employer] MEMBER RAHUL APPROVED TAXI FOR PATIENT.
--- NOTE | 2024-03-18 13:28 | NUR ---
Discharge instructions given. Patient verbalizes understanding of them. Discharged in stable condition via Wheelchair to Home with staff. All belongings sent with pt. IV removed. All questions answered.
== END 2024-03-18 13:20 | disposition home or self-care (01) ==
LOC: ED 19:27 → ED-I 19:59 → ED 22:13 → ICU 22:14
PROVIDERS: Family Medicine; ADMIT Internal Medicine; ATTEND Internal Medicine
DX: R07.89 Other chest pain (principal); D50.9 Iron deficiency anemia, unspecified; M51.16 Intervertebral disc disorders with radiculopathy, lumbar region; Z91.81 History of falling; Z60.2 Problems related to living alone; Z87.820 Personal history of traumatic brain injury
CPT/HCPCS: J1650

== ENCOUNTER 2024-03-19 20:21 | Emergency (ER) | payer MEDICARE ==
[~2024-03-19] VITALS: Ht 167.6 cm; Wt 75.0 kg
[~2024-03-19 20:21] MED LIST changes: +AMLODIPINE BESYL5 MG PO; +FERROUS SULF325 M3 PO
[2024-03-19] MEDS ORDERED: ONDANSETRON HCl 4 MG/2 ML SDV IV ONE (21:40)
[2024-03-19] MEDS ORDERED: MORPHINE SULFATE 4 MG/ML VIAL IV ONE (21:40)
[2024-03-19 22:22] LABS: BASO% 0.7 % (0-3); EOS% 2.5 % (0-8); HEMATOCRIT 39.2 % (39.0-50.0); IMMATURE GRANULOCYTES 0.1 % (0.0-5.0); LYMPH% 21.5 % (15-41); MEAN CELL VOLUME 76.4 fL CALC (80.0-100.0); MEAN CORPUSCULAR HGB 23.4 pG CALC (26.0-32.0); MEAN CORPUSCULAR HGB CONC 30.6 g/dL CAL (32.0-36.0); MONO% 8.2 % (2-13); NEUT# 4.88 thou/uL (1.82-7.42); RED BLOOD COUNT 5.13 mill/uL (4.70-6.10); RED CELL DISTRI WIDTH 17.6 % (11.5-15.5)
[2024-03-19 22:41] LABS: BILIRUBIN, TOTAL 0.5 mg/dL (0.2-1.3); CREATININE 0.9 mg/dL (0.7-1.3); POTASSIUM 4.1 mmol/l (3.5-5.1); TOTAL PROTEIN 7.5 g/dL (6.3-8.2)
[2024-03-19 22:43] LABS: INTERNATIONAL NORMALIZED RATIO 1.1 RATIO (0.7-1.3)
[2024-03-19 22:57] LABS: ALBUMIN 4.5 g/dL (3.2-5.0); PROTHROMBIN TIME 10.3 SECONDS (9.0-12.5)
[2024-03-20] MEDS ORDERED: IBUPROFEN600 MG PO (01:38)
[2024-03-20] MEDS ORDERED: REGLAN10 MG PO (01:38)
[2024-03-20 02:15] VITALS: BP 141/98
== END 2024-03-20 07:04 | disposition home or self-care (01) ==
LOC: ED 20:21
PROVIDERS: Emergency Medicine
DX: S00.01XA Abrasion of scalp, initial encounter (principal); S00.03XA Contusion of scalp, initial encounter; W01.0XXA Fall on same level from slipping, tripping and stumbling without subsequent striking against object, initial encounter; Z87.820 Personal history of traumatic brain injury

== ENCOUNTER 2024-04-02 12:53 | Emergency (ER) | payer MEDICARE ==
[~2024-04-02] VITALS: Ht 167.6 cm; Wt 75.0 kg
[~2024-04-02 12:53] MED LIST changes: +IBUPROFEN600 MG PO; +REGLAN10 MG PO
[2024-04-02 12:57] VITALS: BP 142/89
[2024-04-02 13:00] VITALS: BP 136/89
[2024-04-02] MEDS ORDERED: KETOROLAC TROMETHAMINE 30 MG/ML SDV IM ONE (13:00)
[2024-04-02 13:15] VITALS: BP 130/86
[2024-04-02 13:30] VITALS: BP 127/87
[2024-04-02 13:38] VITALS: BP 127/87
== END 2024-04-02 14:03 | disposition home or self-care (01) ==
LOC: ED 12:53
DX: M54.50 Low back pain, unspecified (principal); G89.29 Other chronic pain; G91.0 Communicating hydrocephalus; Z87.820 Personal history of traumatic brain injury; Z91.81 History of falling

== ENCOUNTER 2024-04-17 23:09 | Emergency (ER) | payer MEDICARE ==
[~2024-04-17] VITALS: Ht 167.6 cm; Wt 78.0 kg
[2024-04-17 23:16] VITALS: BP 174/96
[2024-04-17] MEDS ORDERED: KETOROLAC TROMETHAMINE 30 MG/ML SDV IV ONE (23:20)
[2024-04-17] MEDS ORDERED: ACETAMINOPHEN 500 MG TAB PO ONE (23:20)
[2024-04-17] MEDS ORDERED: ASPIRIN 81 MG/TAB PO ONE (23:20)
[2024-04-17 23:43] LABS: BASO% 0.6 % (0-3); EOS% 1.6 % (0-8); HEMATOCRIT 35.6 % (39.0-50.0); HEMOGLOBIN 10.8 g/dl (14.0-18.0); IMMATURE GRANULOCYTES 0.1 % (0.0-5.0); LYMPH% 17.9 % (15-41); MEAN CELL VOLUME 80.2 fL CALC (80.0-100.0); MEAN CORPUSCULAR HGB 24.3 pG CALC (26.0-32.0); MEAN CORPUSCULAR HGB CONC 30.3 g/dL CAL (32.0-36.0); MONO% 10.9 % (2-13); NEUT# 5.55 thou/uL (1.82-7.42); NEUT% 68.9 % (42-76); RED BLOOD COUNT 4.44 mill/uL (4.70-6.10)
[2024-04-17 23:46] VITALS: BP 175/97
[2024-04-18 00:05] LABS: ALBUMIN 3.6 g/dL (3.2-5.0); ALKALINE PHOSPHATASE 66 u/l (38-126); ANION GAP 6 (6-22 (CALC)); BILIRUBIN, TOTAL 0.2 mg/dL (0.2-1.3); BUN 11 mg/dL (8-23); BUN/CREATININE RATIO 14 (12-20 (CALC)); CARBON DIOXIDE 25 mmol/l (22-30); CHLORIDE 113 mmol/l (95-108); CREATININE 0.8 mg/dL (0.7-1.3); ESTIMATED GFR 98 ML/MIN (>=90 (CALC)); POTASSIUM 3.4 mmol/l (3.5-5.1); SGOT/AST 19 u/l (19-48); SODIUM 141 mmol/l (137-146); TOTAL PROTEIN 6.3 g/dL (6.3-8.2)
[2024-04-18 00:15] VITALS: BP 161/99
[2024-04-18 00:30] VITALS: BP 163/99
[2024-04-18] MEDS ORDERED: DIFLUNISAL500 MG PO ×3 (00:37→06:49)
[2024-04-18 00:46] VITALS: BP 165/94
[2024-04-18 01:01] VITALS: BP 147/91
[2024-04-18 01:16] VITALS: BP 154/93
[2024-04-19] MEDS ORDERED: NAPROXEN500 MG PO (19:35)
[2024-04-20] MEDS ORDERED: NAPROXEN500 MG PO (12:27)
== END 2024-04-18 06:50 | disposition home or self-care (01) ==
LOC: ED 23:09
PROVIDERS: Family Medicine
DX: R07.89 Other chest pain (principal); M54.50 Low back pain, unspecified; G89.29 Other chronic pain; G91.0 Communicating hydrocephalus; Z87.820 Personal history of traumatic brain injury

== ENCOUNTER 2024-04-19 18:54 | Emergency (ER) | payer MEDICARE ==
[~2024-04-19] VITALS: Ht 167.6 cm; Wt 68.0 kg
[~2024-04-19 18:54] MED LIST changes: +DIFLUNISAL500 MG PO
[2024-04-19] MEDS ORDERED: KETOROLAC TROMETHAMINE 30 MG/ML SDV IM ONE (19:05)
[2024-04-19] MEDS ORDERED: NAPROXEN500 MG PO (19:35)
[2024-04-19] MEDS ORDERED: ORPHENADRINE CITRATE 30 MG/ML AMP IM ONE (19:35)
[2024-04-19 19:56] VITALS: BP 139/79
[2024-04-19 20:39] VITALS: BP 145/99
[2024-04-19 20:45] VITALS: BP 134/84
[2024-04-19 21:01] VITALS: BP 124/102
[2024-04-20] MEDS ORDERED: NAPROXEN500 MG PO (12:27)
== END 2024-04-19 19:58 | disposition home or self-care (01) ==
LOC: ED 18:54
DX: M54.50 Low back pain, unspecified (principal); G89.29 Other chronic pain; G91.0 Communicating hydrocephalus; Z87.820 Personal history of traumatic brain injury